=== PATIENT | female | born 1970 | race African-American/Black ===

== ENCOUNTER 2022-10-02 00:29 | Day surgery (SDC) | payer BC, SELFPAY ==
[2022-09-27 08:30] VITALS: BMI 43.1
--- NOTE | 2022-10-02 07:36 | P.PNAN_ITS ---
Anes - Initial Pre Proc Eval Procedure: Operation Date: 10/02/22 13:00 Proposed Procedures p Screening Colonoscopy - Greyson Kan MD Date/Time: 10/02/22 07:36 Surgeon: Greyson Kan MD Pre Op Diagnosis: neoplasm screening Patient Data Age: 52 Gender: F Height: 1.57 m Weight: 107 kg Allergies Allergy/AdvReac Type Severity Reaction Status Date / Time codeine Allergy Mild RASH/ITCHIN Verified 10/02/22 11:42 G Patient hx anesthesia problems: none Family hx anesthesia problems: none Results Review: All pre-operative results and documents have been reviewed as part of the pre- operative evaluation. [facility] Surgical History Surgical History (Updated 07/26/22 @ 09:10 by Guicho Monreal [facility]) History of x2 1993 and 1999 Social History Social History (Updated 07/26/22 @ 09:09 by Guicho Monreal CMA) Smoking status: Never smoker Alcohol intake: current Drinks per week: 5 Substance use: current Substance use type: marijuana Other substance usage details: 3-4 times a month Living arrangements: with family Anes - Eval Final PreProcedure Day of Procedure 10/02/22 07:36 Patient weight: morbidly obese Heart: regular rate and rhythm Lungs: clear to auscultation Airway: Mallampati scale class II Neurological: alert and oriented Last oral intake: >/= 8 hours ASA classification: III Emergent: no Anesthetic plan: proceed Anesthesia type and monitoring: general GIVS and standard monitoring Results Review: All pre-operative results and documents have been reviewed as part of the pre- operative evaluation. Informed Consent: The patient's anesthetic plan and its attendant risks and benefits were discussed with the patient/family/POA. Questions were solicited and answers provided to the satisfaction of the patient/family/POA.
[2022-10-02 11:43] VITALS: BP 141/80; PULSE 60; RESP 17; TEMP 36.2; O2SAT 100
--- NOTE | 2022-10-02 11:53 | PM.HPGS ---
History of Present Illness History of Present Illness Consent: Risks, benefits, and alternatives have been discussed and questions answered. Patient agrees to proceed with procedure. Chief complaint: neoplasm screening Narrative: Roslyn Patel is a 52 year old female Presents for colonoscopy. Patient's current weight appetite and bowel movements are normal. Patient denies abdominal pain. She has had no bleeding. Family history noncontributory. Review of Systems Review of Systems: Review of systems noncontributory. [facility] Surgical History Surgical History (Updated 07/26/22 @ 09:10 by Guicho Monreal [facility]) History of x2 1993 and 1999 Social History Social History (Updated 07/26/22 @ 09:09 by Guicho Monreal [employer]) Smoking status: Never smoker Alcohol intake: current Drinks per week: 5 Substance use: current Substance use type: marijuana Other substance usage details: 3-4 times a month Living arrangements: with family Meds Home Medications and Allergies Allergies Allergy/AdvReac Type Severity Reaction Status Date / Time codeine Allergy Mild RASH/ITCHIN Verified 10/02/22 11:42 G Vital Signs Vital Signs - 24 hr 10/02/22 11:43 Temperature 97.2 F L Pulse Rate 60 Respiratory Rate 17 Blood Pressure 141/80 H Pulse Oximetry 100 Oxygen Delivery Room Air Exam Narrative: Physical exam reveals patient to be alert. Vital signs stable. HEENT exam is unremarkable. Patient is anicteric. Lungs are clear to auscultation and percussion. Heart is without murmur or extra sounds. Abdomen bowel sounds are present soft nontender with no organomegaly. Digital external rectal exam is normal. Assessment and Plan Assessment and plan (1) Encounter for screening colonoscopy: Code(s): Z12.11 - Encounter for screening for malignant neoplasm of colon Status: Acute Assessment and Plan: Patient presents today for screening colonoscopy. She appears to be at average risk for colon polyps. Further recommendations may be given after endoscopy.
[2022-10-02] MEDS: LACTATED RINGERS 1,000 ML 150 ML IV CONT (11:57)
[2022-10-02 13:19] VITALS: BP 123/81; PULSE 81; RESP 15; O2SAT 100
[2022-10-02 13:29] VITALS: BP 123/81; PULSE 55; RESP 19; O2SAT 100
[2022-10-02 13:39] VITALS: BP 133/74; PULSE 58; RESP 19; O2SAT 100
== END 2022-10-02 13:47 | disposition home or self-care (01) ==
PROVIDERS: PCP Family Medicine Adolescent Medicine; Visit Provider Internal Medicine Gastroenterology
PROC: 0DJD8ZZ Inspection of Lower Intestinal Tract, Via Natural or Artificial Opening Endoscopic (ICD-10-PCS; CPT 45378; principal; 2022-10-02 13:00)
DX: Z12.11 Encounter for screening for malignant neoplasm of colon (principal); D12.5 Benign neoplasm of sigmoid colon; K57.30 Diverticulosis of large intestine without perforation or abscess without bleeding; K64.8 Other hemorrhoids; F12.90 Cannabis use, unspecified, uncomplicated; E66.01 Morbid (severe) obesity due to excess calories; Z68.41 Body mass index [BMI] 40.0-44.9, adult
CPT/HCPCS: 45385; 88305; J2704; J7120